=== PATIENT | male | born 1990 | race American Indian/Alaskan Native ===

== ENCOUNTER 2018-06-26 04:36 | Emergency (ER) | payer SELFPAY ==
[2018-06-26 04:47] VITALS: BP 147/76
--- NOTE | 2018-06-26 08:24 | Emergency Department Report ---
Chief Complaint: Urogenital-Male Stated Complaint: GENITAL DISCHARGE Time Seen by Provider: 06/26/18 08:04 - HPI History of Present Illness: This is a 27-year-old male here report that he has penile discharge for 2 days and he has been having on safe sex. He said he has a little bit of tingling urinated but no pain. Denies any back pain, abdominal pain some urinary burning in frequency urgency. Denies any fever or chills. No medication taken prior to coming to the emergency room. - ROS Review of Systems: Positive penile discharge. Negative urinary burning, urgency or frequency. Negative abdominal pain. Negative back pain. Negative blood and urine. Negative nausea or vomiting. No shortness of breath or chest pain. - Exam Vital Signs: Vital Signs 06/26/18 04:43 Temperature 98.3 F Pulse Rate 93 H Respiratory 18 Rate Blood Pressure 147/76 O2 Sat by Pulse 99 Oximetry Physical Exam: This is a 27-year-old male well-nourished well-developed in no acute distress. Abdomen: Soft, nontender to palpate in all quadrants and no guarding or rebound tenderness. No CVA tenderness MSE screening note: Focused history and physical exam performed. Due to findings the following was ordered: ED Medical Decision Making - Medical Decision Making This is a 27-year-old male here complaining STD symptoms and would like to be treated. Assessment/plan Male concern for STD without any diagnosis. Patient offered to be treated in emergency room but he said he cannot afford the money and he will go to multiple resources given to him to be treated for STD. Penile discharged-is a patient that he needs to go to [facility] department. His vital signs are stable he is afebrile. Patient was given multiple resources to utilize to get STD check and treated. Patient was understanding in and he is nontoxic in appearance and nonemergent. Discharge home to follow up at multiple resources clinic given including free clinic to be tested. He voiced understanding I also informed him to let his partner know that he has penile discharge and here she will need to be checked and he agreed. ED Disposition for MSE Clinical Impression: Concern about STD in male without diagnosis Disposition: DC-01 TO HOME OR SELFCARE Is pt being admited?: No Does the pt Need Aspirin: No Condition: Stable Instructions: Safe Sex (ED), Sexually Transmitted Diseases (ED) Additional Instructions: please let your partner know that you are having penile drainage and he will need to be checked for STD Please utilize multiple resources given along with prescription good RX card to get STD test then and treated Referrals: [facility] [Outside[facility] - 2[facility] - [facility] Days
== END 2018-06-26 08:30 | disposition home or self-care (01) ==
LOC: ED 04:36
DX: R36.9 Urethral discharge, unspecified (principal); Z20.2 Contact with and (suspected) exposure to infections with a predominantly sexual mode of transmission; Z91.018 Allergy to other foods; Z91.048 Other nonmedicinal substance allergy status
CPT/HCPCS: 99281